=== PATIENT | male | born 1980 | race Caucasian/White ===

== ENCOUNTER → 2017-10-28 | Outpatient (CLI) | payer OTHER | LOC: LAB 08:56 | DX: R10.13 Epigastric pain (principal) ==

== ENCOUNTER → 2017-11-18 | Outpatient (CLI) | payer OTHER | LOC: LAB 09:10 | DX: R14.0 Abdominal distension (gaseous) (principal); R10.13 Epigastric pain ==

== ENCOUNTER → 2022-04-26 | Outpatient (CLI) | payer OTHER ==
[2022-04-26 07:25] LABS: BASO # 0.02 K/mm3 (0.02-0.10); EOS # 0.16 K/mm3 (0.04-0.40); EOS % 2.5 % (0.0-4.0); HEMATOCRIT 44.6 % (42.0-52.0); HEMOGLOBIN 15.8 g/dL (13.5-18.0); LYMPH# 2.02 K/mm3 (1.50-4.00); MEAN CELL VOLUME 86 fl (78-100); MEAN CORPUSCULAR HEMOGLOBIN 30 pg (27-31); MEAN CORPUSCULAR HGB CONC 35 g/dL (33-37); MEAN PLATELET VOLUME 8.6 fl (7.4-10.4); MONO # 0.46 K/mm3 (0.20-0.80); PLATELET COUNT 287 K/mm3 (130-400); RED BLOOD COUNT 5.21 M/mm3 (4.20-5.60); RED CELL DISTRIBUTION WIDTH 12.9 % (11.5-14.5); WHITE BLOOD COUNT 6.5 K/mm3 (4.8-10.8)
[2022-04-26 07:31] LABS: ALBUMIN 4.3 g/dL (3.5-5.0); POTASSIUM 4.4 mmol/L (3.5-5.1)
[2022-04-26 07:32] LABS: CALCIUM 9.6 mg/dL (8.3-10.5)
[2022-04-26 07:33] LABS: TOTAL PROTEIN 9.2 g/dL (6.4-8.3)
[2022-04-26 07:35] LABS: TOTAL BILIRUBIN 0.3 mg/dL (0.2-1.2)
== END ==
LOC: LAB 07:11
PROVIDERS: Family Medicine
DX: Z00.00 Encounter for general adult medical examination without abnormal findings (principal); Z13.1 Encounter for screening for diabetes mellitus; Z13.220 Encounter for screening for lipoid disorders; Z13.6 Encounter for screening for cardiovascular disorders; M19.071 Primary osteoarthritis, right ankle and foot; G47.33 Obstructive sleep apnea (adult) (pediatric); H61.22 Impacted cerumen, left ear; R09.89 Other specified symptoms and signs involving the circulatory and respiratory systems

== ENCOUNTER → 2022-04-27 | Outpatient (CLI) | payer OTHER | LOC: LAB 12:21 | DX: E78.2 Mixed hyperlipidemia (principal); R73.9 Hyperglycemia, unspecified ==

== ENCOUNTER → 2022-10-16 | Outpatient (CLI) | payer BC | LOC: RAD 12:54 | DX: R10.9 Unspecified abdominal pain (principal) ==